=== PATIENT | male | born 1960 | race Caucasian/White ===

== ENCOUNTER → 2019-06-05 | Outpatient (CLI) | payer BC ==
--- NOTE | 2019-06-05 14:15 | MRI ---
MRI left knee without contrast INDICATION: Knee pain unspecified onset lateral TECHNIQUE: Noncontrast MR imaging left knee FINDINGS: Lateral patellar tracking and tilt with low-grade surface chondrosis patellar apex grade 2. Minimal vague chondral fissuring midline trochlea. Small joint effusion. Small Shah's cyst. Extensor tendons are intact. There is undulation of the ACL but there is apparent continuity. PCL is intact. No acute pivot shift injury. Up to grade 4 chondrosis in the midportion lateral femoral condyle. Diffuse background horizontal cleavage tear lateral meniscus. Mild degenerative change and fraying throughout the body and posterior horn medial meniscus. IMPRESSION: Diffuse horizontal cleavage tear lateral meniscus Grade 4 chondrosis midportion lateral femoral condyle Multifocal patellofemoral chondrosis low-grade Small joint effusion and small Shah's cyst Electronically signed by: Trung Geller MD 06/05/2019 2:14 PM INTERNAL AUDIT CONSULTANT
== END ==
LOC: MRI 10:55
PROVIDERS: ATTEND Family Medicine
DX: S83.282A Other tear of lateral meniscus, current injury, left knee, initial encounter (principal); M22.42 Chondromalacia patellae, left knee; M71.22 Synovial cyst of popliteal space [Baker], left knee; M25.462 Effusion, left knee

== ENCOUNTER → 2019-07-04 | Outpatient (CLI) | payer BC ==
--- NOTE | 2019-07-04 11:30 | RAD ---
EXAM DESCRIPTION: Pelvis CLINICAL HISTORY: 59 years Male, PAIN IN LEFT HIP COMPARISON: None. TECHNIQUE: AP radiograph of the pelvis was performed. FINDINGS: Mild diffuse osteopenia of the visualized bones noted. The pelvic ring is grossly intact. Moderate to severe bilateral hip joint osteoarthritic changes noted left worse than right with [id number] appearance. The overlying soft tissues appear grossly unremarkable. IMPRESSION : Single AP radiograph of the pelvis demonstrates grossly intact pelvic ring. Moderate to severe bilateral hip joint osteoarthritic changes right worse than left. Electronically signed by: Jamarcus See MD 07/04/2019 11:29 AM [facility]
--- NOTE | 2019-07-04 11:33 | RAD ---
EXAM DESCRIPTION: Knee,Left Complete CLINICAL HISTORY: 59 years Male, PAIN IN LEFT KNEE TECHNIQUE: 4 views of the left knee were performed. COMPARISON: None available. FINDINGS: The visualized bones appear well mineralized. No acute fracture or dislocation. The medial and lateral compartment joint space are well-maintained. A subtle 3 mm calcific density in the medial compartment joint space is concerning for a loose body. Mild patellofemoral compartment osteoarthritic changes noted. Moderate suprapatellar joint effusion noted. The overlying soft tissues appear grossly unremarkable. IMPRESSION: 1. No acute fracture or dislocation. 2. Mild patellofemoral compartment joint space osteoarthritis with moderate suprapatellar joint effusion. 3 cm subtle calcific density in the medial compartment joint space is concerning for a loose body. Electronically signed by: Jamarcus See MD 07/04/2019 11:32 AM [facility]
== END ==
LOC: RAD 07:54
PROVIDERS: ATTEND Orthopaedic Surgery
DX: M16.0 Bilateral primary osteoarthritis of hip (principal); M17.12 Unilateral primary osteoarthritis, left knee

== ENCOUNTER 2020-08-31 19:39 | Observation (INO) | payer BC ==
[~2020-08-31 19:39] MED LIST: GLYCOPYRROLATE 0.2 MG/ML VIAL ONE; KETOROLAC TROMETHAMINE INJ 30 MG/ML VIAL ONE; METOCLOPRAMIDE HCL INJ 10 MG/2 ML VIAL ONE; NEOSTIGMINE METHYLSULFATE 1 MG/ML ML IV ONE; ONDANSETRON INJ 4 MG/2 ML VIAL ONE; PROPOFOL 200 MG/20 ML VIAL IV ONE
[2020-08-31] MEDS ORDERED: SUCRALFATE 1 GM/10 ML 1 GM UD PO ONE (20:26)
[2020-08-31] MEDS ORDERED: ALUM & MAG HYDROX-SIMETHICONE 30 ML, LIDOCAINE VISCOUS 2% 15 ML PO ONE ×2 (20:26)
[2020-08-31] MEDS: SIMETHICONE 80 MG TAB PO ONE ×2 (20:36→20:40)
[2020-08-31] MEDS ORDERED: ONDANSETRON ODT 8 MG TAB SL ONE (20:40)
[2020-08-31] MEDS ORDERED: SODIUM CHLORIDE 0.9% (FLUSH) 10 ML SYG ONE (21:09)
--- NOTE | 2020-08-31 21:25 | RAD ---
EXAM: XR Abdomen, 2 Views CLINICAL HISTORY: EPIGASTRIC PAIN STARTED TODAY. TECHNIQUE: Frontal view of the abdomen/pelvis with upright view of the abdomen. COMPARISON: No relevant prior studies available. FINDINGS: Limitations: None. Lower thorax: Visualized portions appear normal. Intraperitoneal space: No free air. Gastrointestinal tract: Mildly dilated small bowel loops present in the abdomen. There is a small amount of air and stool in the colon. Organs: Visualized organ shadows appear grossly normal. Bones/joints: No osseous destruction noted. Soft tissues: No abnormality noted. No concerning calcifications. No concerning radiopaque foreign body noted within the patient. IMPRESSION: Abnormal intestinal gas pattern consistent with early or partial small bowel obstruction. Electronically signed by: Aimee Bell MD 08/31/2020 9:24 PM CONSTRUCTION JOB COST ESTIMATOR
--- NOTE | 2020-08-31 21:25 | RAD ---
EXAM DESCRIPTION: Abdomen Lat/Decubitus 08/31/2020 9:22 PM [employer] PICKL[employer] CLINICAL HISTORY: 60 years, Male, EPIGASTRIC PAIN, ERUDICATION, STARTED TODAY. COMPARISON: 08/31/2020 FINDINGS: 1 X-ray views of the abdomen (right lateral decubitus were performed. Prior films were compared. Within the decubitus film there is no definitive evidence for free air. The gas pattern is nondiagnostic. The visualized bony structures are unremarkable. IMPRESSION: THE GLUTEUS FILM DEMONSTRATE NO DEFINITIVE SIGNIFICANT FREE AIR AND/OR MAJOR BOWEL DILATATION. Electronically signed by: Dorian Pugh MD 08/31/2020 9:23 PM [employer]
[2020-08-31] MEDS ORDERED: SODIUM CHLORIDE 0.9% 1000ML 1,000 ML IVS PRN (21:47)
[2020-08-31] MEDS ORDERED: HYDROmorphone HCL INJ 2 MG/ML VIAL IV ONE (21:50)
--- NOTE | 2020-08-31 21:55 | ED.PDOC ---
History of Present Illness - General Chief Complaint: Abdominal Pain Stated Complaint: abdominal pain Time Seen by Provider: 08/31/20 20:23 Information Source: patient, family Exam Limitations: no limitations - History of Present Illness Initial Comments: EPIGASTRIC ABD PAIN, STARTING TODAY. FEELS LIKE A KNOT OR SPASM. PSH - NO ABD SURGERIES. POS H/O DIVERTICULITIS/OSIS. Abdominal Pain Onset Location: epigastric Pain Radiation: no radiation Quality: moderate - 7/10 Timing/Duration: 4-6 hours Improving Factors: nothing Worsening Factors: nothing Review of Systems - Review of Systems Constitutional: Denies: chills, fever EENTM: States: no symptoms reported Respiratory: Denies: cough, short of breath Cardiology: Denies: chest pain, palpitations Gastrointestinal/Abdominal: States: abdominal pain, nausea, other - NO FLATUS TODAY. POS ERUDICATION. . Denies: constipation, diarrhea, vomiting Genitourinary: States: no symptoms reported Musculoskeletal: States: no symptoms reported Skin: States: no symptoms reported Neurological: States: no symptoms reported Endocrine: States: no symptoms reported Hematologic/Lymphatic: States: no symptoms reported All other Systems: Reviewed and Negative Past Medical History (General) - Patient Medical History Hx Seizures: No Hx Stroke: No Hx Dementia: No Hx Asthma: No Hx of COPD: No Hx Cardiac Disorders: No Hx Congestive Heart Failure: No Hx Pacemaker: No Hx Hypertension: Yes Hx Thyroid Disease: No Hx Diabetes: No Hx Gastroesophageal Reflux: Yes Hx Renal Disease: No Hx Cancer: No Hx of HIV: No Hx Hepatitis C: No Hx MRSA: No Surgical History: no surgical history - Vaccination History Hx Tetanus, Diphtheria Vaccination: No Hx Influenza Vaccination: No Hx Pneumococcal Vaccination: No - Social History Hx Tobacco Use: No Hx Chewing Tobacco Use: No Hx Alcohol Use: Yes Hx Substance Use: No Hx Substance Use Treatment: No Hx Depression: No Feels Threatened In Home Enviroment: No Feels Threatened In a Relationship: No Hx Physical Abuse: No Hx Emotional Abuse: No Hx Suspected Abuse: No - Female History Patient is a Female of Child Bearing Age (10 -59 yrs old): No - Triage Comment ED Triage Comment: The patient walked from the ER wating room into Er room 2 and was left in bed with rails up. He was alert and oriented times 4 and complained of pain in discomfort in all abdominal quadrants and discribed the pain as a gas pain or cramping. He did complain of nausea but denied chest pain and shortness of breath. He had no other noted complaints at the time of assessment. Family Medical History - Family History Mother Family History: No Known Physical Exam - Physical Exam General Appearance: Alert, Other - UNCOMFORTABLE Eyes, Ears, Nose, Throat Exam: PERRL/EOMI, normal ENT inspection Neck: full range of motion, normal inspection Respiratory: lungs clear, normal breath sounds Cardiovascular/Chest: normal peripheral pulses, regular rate, rhythm, no murmur Peripheral Pulses: No deficit Gastrointestinal/Abdominal: normal bowel sounds, soft, no organomegaly, no pulsatile mass, tenderness - MILDLY TTP, EPIGASTRIC. NTTP IN LLQ, RLQ, UMBILICAL, AND SUPRAPUBIC. NO G/R. Rectal Exam: deferred Back Exam: no CVA tenderness Extremity: normal range of motion, normal inspection Neurologic: no motor/sensory deficits, alert, normal mood/affect Skin Exam: normal color, warm/dry Lymphatic: no adenopathy Progress - Progress Progress: 08/31/20 21:55 UPRIGHT AXR SHOWS DILATED LOOPS OF BOWEL, C/W PARTIAL SMALL BOWEL OBSTRUCTION. OBTAINING CT FOR FURTHER IMAGING. I D/W ARLEY BORDEN, HOSPITALIST. 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 ONCE CT IS BACK, I WILL CALL ARLEY AGAIN FOR ADMISSION AND CARE. 09/01/20 00:00 CT SHOWS NO SBO, BUT POS FOR ACUTE APPENDICITIS. ARLEY BORDEN D/W DR. MACK, WHO IS ACCEPTING ADMISSION AND FURTHER CARE ALONG WITH [facility] BORDEN. THANK YOU BOTH. WBC AND NEUTS ELEVATED. STARTING ZOSYN, IVF, NPO. Departure - Departure Clinical Impression: Neutrophilic leukocytosis Acute appendicitis Qualifiers: Acute appendicitis type: with localized peritonitis Appendicitis gangrene presence: without gangrene Appendicitis perforation presence: without perforation Appendicitis abscess presence: without abscess Qualified Code(s): K35.30 - Acute appendicitis with localized peritonitis, without perforation or gangrene Abdominal pain Qualifiers: Abdominal location: epigastric Qualified Code(s): R10.13 - Epigastric pain Disposition: Admit Patient Condition: Good Departure Forms: ED Discharge - Pt. Copy, Patient Portal Self Enrollment Instructions: DI for Abdominal Pain-Adult Diet: other - NPO Referrals: Too Garcia MD [Primary Care Provider] - 1-2 Weeks Home Medications: Ambulatory Orders Meloxicam 15 mg PO DAILY PRN 08/31/20 Metoprolol Tartrate 25 mg PO BID 08/31/20 Decision To Admit - Decistion To Admit Decision to Admit Reason: Admit from ER Decision to Admit Date: 09/01/20 Decision to Admit Time: 00:08
--- NOTE | 2020-08-31 22:40 | CT ---
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 ABD PAIN TODAY. COMPARISON: None PROCEDURE: Contrast-enhanced images of the abdomen and pelvis were performed utilizing 5 mm slice thickness at 5 mm interval reconstruction from the lung bases to the ischial tuberosities after the administration of IV contrast. No dosing amount was provided for interpretation. In addition multiplanar reformats in the coronal and sagittal plane were obtained and reviewed. An individualized dose optimization technique, Automated Exposure Control, was utilized for the performed procedure. FINDINGS: The lung bases right diaphragmatic elevation with compressive the day changes. Linear area of nodular atelectasis is noted within the area of atelectasis on image 6-9. The liver, gallbladder, pancreas, spleen and adrenal glands demonstrate to be unremarkable, no focal lesions are noted. The kidneys demonstrate normal uptake of contrast media. No hydronephrosis and/or stones were identified. Grossly the unopacified stomach, small bowel and large bowel demonstrate to be within normal limits. There is diverticulosis within the colon. There is no evidence for bowel dilatation and/or free air. The left site colon is decompressed. There is a enlarged tubular structure within the right lower quadrant/right flank retrocecal corresponding to enlarged appendix measuring approximately 16.6 mm on axial image 60 corresponding to acute appendicitis. There is minimal surrounding periappendiceal haziness suggesting inflammation. No evidence for abscess formation and/or perforation. The urinary bladder demonstrate to be unremarkable. The prostate gland is normal. The aorta demonstrate to be normal. There is no retroperitoneal lymphadenopathy. There is no evidence for ascites and/or significant abnormal fluid collections. The rest of the soft tissue and bony structures are within normal limits. IMPRESSION: FINDINGS CONSISTENT WITH A RETROCECAL ACUTE APPENDICITIS. NO EVIDENCE FOR ABSCESS FORMATION AND/OR PERFORATION. ELEVATION RIGHT HEMIDIAPHRAGM WITH COMPRESSIVE ATELECTATIC CHANGES. Electronically signed by: Dorian Pugh MD 08/31/2020 10:39 PM HEATING AND VENTILATION ENGINEER
[2020-09-01] MEDS ORDERED: PIPERACILLIN/TAZOBACTAM 3.375 GM in SODIUM CHLORIDE 0.9% 100ML 100 ML IVPB ONE (00:02)
[2020-09-01] MEDS ORDERED: SODIUM CHLORIDE 0.9% 1000ML 1,000 ML IVS PRN (00:03)
[2020-09-01] MEDS ORDERED: HYDROmorphone HCL INJ 2 MG/ML VIAL IV ONE (01:02)
[2020-09-01] MEDS ORDERED: HYDROmorphone HCL INJ 2 MG/ML VIAL ONE (01:03)
--- NOTE | 2020-09-01 01:34 | HP ---
REASON FOR ADMISSION: Acute appendicitis. HISTORY OF PRESENT ILLNESS: This is a 60-year-old man who presented to the Emergency Room last night for evaluation of abdominal pain. It had been going on for just a single day. He gives a history of similar abdominal pains going back a long time, thought at one time to be his pancreas, but apparently negative evaluation, but he thinks this feels much like his previous pain, particularly when he gets morphine and the pain is down a little bit, it is at the same spot. He points to his right side. There are no aggravating factors, no sick contacts and no alleviating factors. PAST MEDICAL HISTORY: History of reflux. He denies any significant medical history. PAST SURGICAL HISTORY: No surgical history. SOCIAL HISTORY: Alcohol occasionally. He denies any illicit habits. REVIEW OF SYSTEMS: CONSTITUTIONAL: No fevers, no chills. HEENT: No headache, visual changes, sore throat. RESPIRATORY: No cough or wheeze. CARDIOVASCULAR: No chest pain or palpitations. GASTROINTESTINAL: As above. The pain is on his right side. He has no flank pain. GENITOURINARY: No frequency, dysuria or hematuria. EXTREMITIES: No complaints. SKIN: No complaints. PHYSICAL EXAMINATION: VITAL SIGNS: Afebrile. Vital signs are normal. GENERAL: The patient is conscious, alert and well-oriented, in no distress. HEENT: Normocephalic, atraumatic. Pupils equal and reactive. Sclerae anicteric. Oral mucosa is moist. NECK: Supple with full range of motion. CHEST: Clear with no wheezing. HEART: Regular. ABDOMEN: Soft. No evidence of diffuse peritonitis. There is some right lower quadrant mild tenderness with no extreme guarding. CVA tenderness negative. EXTREMITIES: No cyanosis, clubbing or edema. NEUROLOGIC: He has grossly normal neurologic exam and cranial nerves grossly normal. LABORATORY: White count 13, hematocrit 47, platelet count 165. No bandemia. BMP essentially normal. Urinalysis ordered later based on the CT findings is negative. RADIOLOGY: CT scan and abdominal films were done in evaluation and the plain film was normal with no evidence of free air. The CT impression is consistent with acute appendicitis with no evidence of abscess. On my review, there was a little bit of fluid around the right kidney which could be related to the retrocecal appearance of the appendix and inflammation going up in the posterior compartment, but we got a UA and it was negative. IMPRESSION: 1. Acute appendicitis. PLAN: Laparoscopic appendectomy. The patient has been consented for the procedure. #[id number] [facility]
[2020-09-01] MEDS ORDERED: LACTATED RINGERS 1,000 ML IVS PRN (02:04)
[2020-09-01] MEDS ORDERED: SODIUM CHLORIDE 0.9% (FLUSH) 10 ML SYG IV PRN (02:08)
[2020-09-01] MEDS ORDERED: ONDANSETRON INJ 4 MG/2 ML VIAL IV PRN (02:08)
[2020-09-01] MEDS ORDERED: ALPRAZolam 0.25 MG TAB PO ONE (02:21)
[2020-09-01] MEDS ORDERED: IV SET AND CAP CHANGE INJ INJ SCH (02:30)
[2020-09-01] MEDS ORDERED: SODIUM CHL 0.9% 100ML MINI-BAG 100 ML IVPB ONE (03:51)
[2020-09-01] MEDS ORDERED: PIPERACILLIN/TAZOBACTAM 3.375 GM VIAL IVPB ONE (03:51)
[2020-09-01] MEDS: MORPHINE SULFATE INJ 10 MG/ML VIAL IV PRN ×3 (05:54→15:55)
[2020-09-01] MEDS: PIPERACILLIN/TAZOBACTAM 3.375 GM in SODIUM CHLORIDE 0.9% 100ML 100 ML IVPB SCH ×2 (06:09→12:14)
[2020-09-01] MEDS ORDERED: PANTOPRAZOLE SODIUM IV 40 MG VIAL IV SCH (06:30)
--- NOTE | 2020-09-01 07:13 | RAD ---
EXAM: XR Chest, 1 View CLINICAL HISTORY: pre-op TECHNIQUE: Frontal view of the chest. COMPARISON: No relevant prior studies available. FINDINGS: Lungs: Shallow inspiration with mild basilar vascular crowding noted. No consolidation. Pleural space: No pneumothorax. No pleural effusion. Heart: Normal cardiac size and configuration. Mediastinum: No abnormality noted. Bones/joints: No osseous destruction or sclerosis noted. IMPRESSION: No acute cardiopulmonary disease noted. Electronically signed by: Aimee Bell MD 09/01/2020 7:12 AM DYE WINCH OPERATOR
[2020-09-01] MEDS ORDERED: METOPROLOL TARTRATE 25 MG TAB PO SCH (09:00)
[2020-09-01] MEDS ORDERED: BUPIVACAINE 0.25% W/EPI 50 ML VIAL INJ ONE ×2 (12:35→13:13)
[2020-09-01] MEDS ORDERED: fentaNYL CITRATE INJ 50 MCG/ML 5 ML AMP ONE (12:48)
[2020-09-01] MEDS ORDERED: SUCCINYLCHOLINE CHLORIDE 200 MG/10 ML VIAL ONE (12:48)
[2020-09-01] MEDS ORDERED: ROCURONIUM BROMIDE 10 MG/ML VIAL ONE (12:48)
[2020-09-01] MEDS ORDERED: MIDAZOLAM INJ 2 MG/2 ML VIAL ONE (12:48)
[2020-09-01] MEDS ORDERED: LACTATED RINGERS 1,000 ML ONE (13:54)
[2020-09-01] MEDS ORDERED: NEOSTIGMINE METHYLSULFATE 1 MG/ML ML IV ONE (14:03)
--- NOTE | 2020-09-01 14:21 | OP ---
DATE OF PROCEDURE: 09/01/20 PREOPERATIVE DIAGNOSIS: 1. Acute appendicitis. POSTOPERATIVE DIAGNOSIS: 1. Acute appendicitis. PROCEDURE: 1. Laparoscopic appendectomy. SURGEON: Too Pulido MD ANESTHESIA: General. FINDINGS: Acute suppurative nonperforated appendix. COMPLICATIONS: None. ESTIMATED BLOOD LOSS: None. PLAN: Discharge. INDICATION: As stated. PROCEDURE: General anaesthesia was induced. The patient was prepped and draped in sterile fashion. 0.5% Marcaine with epinephrine was used at all incision sites. While maintaining upward traction, a ham was made in the base of the umbilicus. A Veress needle was introduced. There was free flow of fluid into the peritoneal cavity which was insufflated to an appropriate level with CO2 gas. A 5 mm trocar was placed followed by the camera. There was no evidence of bleeding or bowel injury. The patient was positioned and the suprapubic and right lower quadrant ports were placed. The appendix was identified. It was slightly stuck to the lateral wall. It was pretty inflamed, but not perforated. It was not easy to free up completely, so we made a window at the base of the appendix and stapled across with a blue load at the good, healthy junction at the appendix and cecum. We then used the whitley load to fire 2 loads across the medial base of the appendix, totally excising the appendix. There was excellent hemostasis at the staple line. There was no abscess. The area was irrigated and aspirated until all aspirate was clear. The clips were examined. There was no bleeding or bile leakage. The appendix was placed in the EndoCatch bag and removed. The pelvis was examined. There was no significant reactive fluid in the pelvis. The suprapubic fascia was then closed with #0 Vicryl using the suture passers. The area was airtight and non- bleeding. The remaining trocars were removed while desufflating the abdomen. The wounds were closed with Monocryl and dressing applied. He was awakened and taken to Recovery were he will be able to be discharged post recovery. #[id number] cc: Too Garcia MD [facility]
[2020-09-01] MEDS ORDERED: MEPERIDINE HCL 50 MG/ML VIAL ONE (14:50)
[2020-09-01] MEDS ORDERED: MEPERIDINE HCL 50 MG/ML VIAL IV ONE (14:50)
[2020-09-01] MEDS ORDERED: ACETAMINOPHEN W/COD #3 TAB 1 EA TAB PO PRN (17:12)
[2020-09-01] MEDS ORDERED: ACETAMINOPHEN W/COD #3 TAB 1 EA TAB ONE (17:15)
[2020-09-01 18:23] VITALS: BP 110/65; TEMP 98.3; O2SAT 93
--- NOTE | 2020-09-17 13:36 | DS ---
REASON FOR ADMISSION: Acute appendicitis. PROCEDURES: Appendectomy, laparoscopic. HOSPITAL COURSE: The patient was admitted in the late hour on 08/31/20 with acute appendicitis. He was admitted and started on antibiotics. He did well overnight. He was consented for laparoscopic appendectomy. Surgery was performed. Please see operative report for complete details. There was no evidence of complications. The patient will be able to safely discharge postoperatively. DISCHARGE INSTRUCTIONS: Discharge home, regular diet. Tylenol #3 and Augmentin were given. Shower in 48 hours. Followup in 2 weeks. FINAL DIAGNOSIS: Acute appendicitis status post laparoscopic appendectomy. PROGNOSIS: Good. [facility][id number] [facility]
== END 2020-09-01 18:10 | disposition home or self-care (01) ==
LOC: ER 19:39 → MS 19:40 → UNDOADMOB 09-01 01:34 → MS 09-01 01:34 → UNDODISOB 09-01 18:10
PROVIDERS: ADMIT Nurse Practitioner Family; ATTEND Surgery
DX: K35.890 Other acute appendicitis without perforation or gangrene (principal); I10 Essential (primary) hypertension; K21.9 Gastro-esophageal reflux disease without esophagitis; Z20.822 Contact with and (suspected) exposure to COVID-19
CPT/HCPCS: 44970; 00840; 96366; 96365; 96375 ×2; 96376; J3010; J1170 ×2; J1885; J2175 ×2; J2765; J2270 ×3; J2710 ×2; J2405; J2543 ×3; J3490; J7030; J0330; A4216; J2250; J7050 ×3; J7120 ×2; 80048; 80053; 36415 ×2; 81001; 85025 ×2; 83690 ×2; 83605; 74019; 71045; 74018; 74177; 94762; 99285; 93005; G0378; 87635